=== PATIENT | male | born 1990 | race Caucasian/White ===

== ENCOUNTER 2018-02-10 14:47 | Emergency (ER) | payer SELFPAY ==
[2018-02-10] MEDS ORDERED: NORMAL SALINE 1000 ML 1,000 ML IV ONE ×2 (16:30→16:36)
[2018-02-10] MEDS ORDERED: ONDANSETRON HCL INJ/PF 4 MG/2 ML SDV IV ONE (16:30)
--- NOTE | 2018-02-10 16:38 | ER Document Report ---
ED Medical Screen (RME) - General Chief Complaint: Nausea/Vomiting/Diarrhea Stated Complaint: VOMITING,ABDOMINAL PAIN Notes: 28-year-old male with history of peptic ulcer disease and questionable gallbladder disease comes to the emergency department for vomiting and diarrhea for the last 2-3 days. He states that he is "in the bathroom constantly "and he is gotten no sleep. He complains that he has had diarrhea at least 20 times over the course of the last 48 hours. He cannot tolerate any solid foods. He can tolerate liquids for about 30 minutes and then he immediately has to go to the bathroom. He complains of sweats and chills. Patient is currently staying in a hotel and the night prior to his symptoms he ate at the [employer], the next morning had some pretzels, then his first episode of diarrhea was at about 8 PM, approximately 24 hours after last known meal. I have greeted and performed a rapid initial assessment of this patient. A comprehensive ED assessment and evaluation of the patient, analysis of test results and completion of medical decision making process will be conducted by an additional ED providers. TRAVEL OUTSIDE OF THE [place] IN LAST 30 DAYS: No - Related Data Allergies/Adverse Reactions: No Known Allergies Allergy (Verified 02/10/18 14:48) Past Medical History - Social History Frequency of alcohol use: Occasional Renal/ Medical History: Denies: Hx Peritoneal Dialysis GI Medical History: Reports: Hx Gastroesophageal Reflux Disease Past Surgical History: Reports: Hx Oral Surgery - wisdom teeth Physical Exam - Vital signs Vitals: Temp Pulse Resp BP Pulse Ox 99.0 F 128 H 16 148/95 H 96 02/10/18 14:51 02/10/18 14:51 02/10/18 14:51 02/10/18 14:51 02/10/18 14:51 - Abdominal Inspection: Normal Distension: No distension Bowel sounds: Hyperactive Tenderness: Tender - Moderate tenderness to palpation all 4 quadrants, worse in right upper quadrant. Patient states that pain on palpation RUQ so severe that it is sending chills up his spine. No rebound tenderness. No evidence of acute abdomen. Course - Vital Signs Vital signs: Temp Pulse Resp BP Pulse Ox 99.0 F 128 H 16 148/95 H 96 02/10/18 14:51 02/10/18 14:51 02/10/18 14:51 02/10/18 14:51 02/10/18 14:51
[2018-02-10 17:10] LABS: ABSOLUTE BASOPHILS # (AUTO) 0.1 10^3/uL (0.0-0.2); ABSOLUTE EOSINOPHILS # (AUTO) 0.1 10^3/uL (0.0-0.6); ABSOLUTE LYMPHOCYTES (AUTO) 1.2 10^3/uL (0.5-4.7); ABSOLUTE MONOCYTES (AUTO) 1.4 10^3/uL (0.1-1.4); ABSOLUTE NEUT (AUTO) 6.9 10^3/uL (1.7-8.2); BASOPHILS % (AUTO) 0.6 % (0-2); EOSINOPHILS % (AUTO) 0.6 % (0-6); HEMATOCRIT 54.2 % (37.9-51.0); HEMOGLOBIN 19.2 g/dL (13.5-17.0); LYMPHOCYTES % (AUTO) 12.7 % (13-45); MEAN CORPUSCULAR HEMOGLOBIN 30.9 pg (27.0-33.4); MEAN CORPUSCULAR HGB CONC 35.4 g/dL (32.0-36.0); MEAN CORPUSCULAR VOLUME 87 fl (80-97); MONOCYTES % (AUTO) 14.6 % (3-13); PLATELET COUNT 229 10^3/uL (150-450); RED BLOOD COUNT 6.21 10^6/uL (4.35-5.55); RED CELL DISTRIBUTION WIDTH 13.3 % (11.5-14.0); SEGMENTED NEUTROPHILS % (AUTO) 71.5 % (42-78); TOTAL CELLS COUNTED % (AUTO) 100 %; WHITE BLOOD COUNT 9.7 10^3/uL (4.0-10.5)
[2018-02-10 17:39] LABS: ALANINE AMINOTRANSFERASE 39 U/L (21-72); ALKALINE PHOSPHATASE 84 U/L (38-126); ANION GAP 14 (5-19); ASPARTATE AMINO TRANSFERASE 39 U/L (17-59); BILIRUBIN,DIRECT 0.3 mg/dL (0.0-0.4); BILIRUBIN,TOTAL 0.8 mg/dL (0.2-1.3); BLOOD UREA NITROGEN 26 mg/dL (7-20); CALCIUM 10.1 mg/dL (8.4-10.2); CARBON DIOXIDE 31 mmol/L (22-30); CHLORIDE 93 mmol/L (98-107); GLUCOSE 114 mg/dL (75-110); POTASSIUM 4.3 mmol/L (3.6-5.0); SODIUM 137.7 mmol/L (137-145); TOTAL PROTEIN 8.9 g/dL (6.3-8.2)
--- NOTE | 2018-02-10 17:50 | RADIOLOGY REPORT (SQ) ---
EXAM DESCRIPTION: U/S ABDOMEN LIMITED W/O DOP COMPLETED DATE/TIME: 02/10/2018 5:35 pm REASON FOR STUDY: RUQ pain. LIMITED RUQ US COMPARISON: None. TECHNIQUE: Dynamic and static grayscale images acquired of the abdomen and recorded on PACS. Elise machuca selected color Doppler and spectral images recorded. LIMITATIONS: None. FINDINGS: PANCREAS: Poorly seen. LIVER: No masses. Echotexture normal. LIVER VASCULATURE: Normal directional flow of the main portal vein and hepatic veins. GALLBLADDER: No stones. There is a small amount of sludge. No pericholecystic fluid. ULTRASOUND-DETECTED LOUIS'S SIGN: Positive INTRAHEPATIC DUCTS AND COMMON DUCT: CBD and intrahepatic ducts normal caliber. No filling defects. INFERIOR VENA CAVA: Normal flow. AORTA: No aneurysm. RIGHT KIDNEY: Normal size 9.8 cm. Normal echogenicity. No solid or suspicious masses. No hydronephro sis. No calcifications. PERITONEAL AND RIGHT PLEURAL SPACE: No ascites or effusions. OTHER: No other significant findings. IMPRESSION: There is some gallbladder sludge. There is a positive sonographic Louis sign. No gall stones. No ductal dilatation. TECHNICAL DOCUMENTATION: JOB ID: [id number] [employer]- All Rights Reserved Reading location - IP/workstation name: [email or web address]
--- NOTE | 2018-02-10 19:33 | ER Document Report ---
ED General - General Chief Complaint: Nausea/Vomiting/Diarrhea Stated Complaint: VOMITING,ABDOMINAL PAIN Notes: Patient is a 28-year-old male who presents to the emergency department with a chief complaint of nausea, vomiting, and diarrhea. He states that he has not b een able to keep any food down in the past 2 days. His pain is mainly in his right upper quadrant and is throughout his whole abdomen. He is from [facility], and is doing some work on [employer]. He states that about last year he was seen in the emergency department for the same symptoms and was told that he had gallbladder issues. He denies any stones at that time. He states he was supposed to follow-up with a surgeon, but was not able to. TRAVEL OUTSIDE OF THE [place] IN LAST 30 DAYS: No - Related Data Allergies/Adverse Reactions: No Known Allergies Allergy (Verified 02/10/18 14:48) Past Medical History - General Information source: Patient - Social History Smoking Status: Current Every Day Smoker Frequency of alcohol use: Occasional Drug Abuse: None Lives with: Friend Family History: Reviewed & Not Pertinent Patient has suicidal ideation: No Patient has homicidal ideation: No Renal/ Medical History: Denies: Hx Peritoneal Dialysis GI Medical History: Reports: Hx Gastroesophageal Reflux Disease Past Surgical History: Reports: Hx Oral Surgery - wisdom teeth Review of Systems - Review of Systems Notes: REVIEW OF SYSTEMS: CONSTITUTIONAL : Denies recent illness. Denies recent unintentional weight loss. Denies fever, chills, or sweats. EENT: Denies eye, ear, throat, or mouth pain, discharge, or symptoms. Denies nasal or sinus congestion. CARDIOVASCULAR: Denies chest pain. RESPIRATORY: Denies shortness of breath, cough, congestion, difficulty breathing, or wheezing. GASTROINTESTINAL: See HPI GENITOURINARY: Denies difficulty urinating, burning, blood in urine, urgency or frequency. MUSCULOSKELETAL: Denies neck and back pain. Denies joint pain or swelling. SKIN: Denies rash, itchiness, or lesions HEMATOLOGIC : Denies easy bruising or bleeding. LYMPHATIC: Denies swollen, painful, enlarged glands. NEUROLOGICAL: Denies no numbness or tingling denies weakness. Denies headache. Denies altered mental status. Denies alteration in speech. PSYCHIATRIC: Denies stress, anxiety, alteration in sleep patterns, or depression. All other systems reviewed and negative. Physical Exam - Vital signs Vitals: Temp Pulse Resp BP Pulse Ox 99.0 F 128 H 16 148/95 H 96 02/10/18 14:51 02/10/18 14:51 02/10/18 14:51 02/10/18 14:51 02/10/18 14:51 - Notes Notes: PHYSICAL EXAMINATION: GENERAL: Appears well, healthy, well-nourished, no acute distress. HEAD: Normocephalic, atraumatic. EYES: PERRL, conjunctiva normal, all extraocular movements intact, sclera nonicteric ENT: Moist mucous membranes. NECK: Supple, no noticeable swelling, redness, rash. Normal range of motion. LUNGS: Equal breath sounds bilaterally and clear to auscultation. No wheezes rales or rhonchi. CARDIOVASCULAR: S1-S2, regular rate, regular rhythm. Radial pulses 2+, normal. ABDOMEN: Normoactive bowel sounds. Soft, right upper quadrant tenderness, no guarding, no rebound tenderness, and no masses palpated. EXTREMITIES: Normal strength and range of motion, no pitting or edema. No cyanosis. NEUROLOGICAL: Moves all extremities upon command. Strength 5/5 in all extremities. PSYCH: Normal mood, normal affect. SKIN: Warm, dry. No rash, lesions, ulcerations noted. Normal skin turgor. Course - Re-evaluation Re-evalutation: 02/10/18 19:37 Patient does have a positive Weir sign. He also does have sludge on his ultrasound. I have called Dr. Arguelles in regards to this case. Dr. Arguelles will evaluate the patient. 02/10/18 20:39 Dr. Arguelles has evaluated the patient and he states that the patient has a stomach ulcer. Dr. Arguelles will give him his viscous lidocaine. The patient states that he does not want to stay in the hospital and be admitted. Dr. Arguelles will also order him some Carafate. If the patient does better with the viscous lidocaine, Dr. Arguelles states the patient is stable for discharge. 02/10/18 21:53 Patient states that he feels tremendously better. Dr. Arguelles has already wrote a prescription for Carafate and famotidine. Per Dr. Arguelles's recommendations, patient will be discharged since he is feeling better after having the viscous lidocaine. Verbal discharge instructions were given to the patient. They verbalized understanding. They are stable for discharge. - Vital Signs Vital signs: Temp Pulse Resp BP Pulse Ox 97.6 F 90 16 141/88 H 97 02/10/18 22:13 02/10/18 22:13 02/10/18 22:13 02/10/18 22:13 02/10/18 22:13 - Laboratory Result Diagrams: 02/10/18 16:54 02/10/18 16:54 Laboratory results interpreted by me: 02/10/18 02/10/18 16:54 16:54 RBC 6.21 H Hgb 19.2 H Hct 54.2 H Lymphocytes % 12.7 L Monocytes % 14.6 H Chloride 93 L Carbon Dioxide 31 H BUN 26 H Glucose 114 H Total Protein 8.9 H Discharge - Discharge Clinical Impression: Abdominal pain Qualifiers: Abdominal location: generalized Qualified Code(s): R10.84 - Generalized abdominal pain Condition: Stable Disposition: HOME, SELF-CARE Additional Instructions: You were seen in the emergency department today for abdominal pain and vomiting. Dr. Arguelles, her surgeon evaluated you and you have a stomach ulcer. Please take the medications he has prescribed to you. Please stay away from greasy foods, spicy foods, or any foods that will irritate your stomach. If you develop worsening abdominal pain, develop a fever greater than 100.4 F, or have any symptoms that are worrisome to you, please return to the emergency department.
[2018-02-10] MEDS ORDERED: HYDROMORPHONE HCL INJ/PF 2 MG/ML AMPULE IV ONE (19:37)
[2018-02-10] MEDS ORDERED: LIDOCAINE 2% VISCOUS SOLN 20 ML UDCUP PO ONE (20:40)
--- NOTE | 2018-02-10 21:17 | PDOC CONSULTATION ---
Consultation Consult Date: 02/10/18 Consult reason:: Constant upper abdominal pain, nausea, vomiting History of Present Illness History of Present Illness: YEISON CLEMENTE is a 28 year old male seen at the request of the emergency room physician. The patient reports a 5-day history of gnawing, stabbing, epigastric abdominal pain. The patient has a history of peptic ulcer disease. The patient takes BC powders on a regular basis. He is prescribed Prilosec, however he only takes it intermittently (when he can afford it). He also smokes cigarettes and drinks alcohol. His pain is constant and worsening. He rates it as 10 out of 10. The pain today is similar to pain he has experienced previously. It hurts with everything that he eats or drinks, including crackers and water. The patient has reported streaks of blood in his vomitus. The patient has never been tested for H. pylori. The patient has not been able to identify specific fatty food intolerance. He denies chest pain, shortness of breath, fevers, chills, blurry vision, headache, sore throat, dysuria, melena, hematochezia. Past Medical History GI Medical History: Reports: Gastroesophageal Reflux Disease, Peptic Ulcer Disease Social History Smoking Status: Current Every Day Smoker Frequency of Alcohol Use: Social - Frequent alcohol use Drugs: None Hx Prescription Drug Abuse: No Family History Parental Family History Reviewed: Yes Children Family History Reviewed: Yes Sibling(s) Family History Reviewed.: Yes Medication/Allergy Home Medications: Omeprazole 20 mg PO DAILY 02/10/18 Allergies/Adverse Reactions: No Known Allergies Allergy (Verified 02/10/18 14:48) Review of Systems Constitutional: PRESENT: anorexia, fatigue. ABSENT: chills, fever(s), night sweats Eyes: ABSENT: visual disturbances Ears: ABSENT: hearing changes Nose, Mouth, and Throat: ABSENT: sore throat Cardiovascular: ABSENT: chest pain Respiratory: ABSENT: cough, dyspnea Gastrointestinal: PRESENT: abdominal pain, hematemesis, nausea, vomiting. ABSENT: melena Genitourinary: ABSENT: dysuria Musculoskeletal: ABSENT: back pain Integumentary: ABSENT: pruritus, rash Neurological: ABSENT: confusion, convulsions, dizziness Psychiatric: ABSENT: anxiety, depression Endocrine: ABSENT: cold intolerance, heat intolerance Hematologic/Lymphatic: ABSENT: easy bleeding, easy bruising Physical Exam Vital Signs: Temp Pulse Resp BP Pulse Ox 99.0 F 128 H 16 148/95 H 96 02/10/18 14:51 02/10/18 14:51 02/10/18 14:51 02/10/18 14:51 02/10/18 14:51 Intake & Output 02/09/18 02/10/18 02/11/18 06:59 06:59 06:59 Intake Total 1999 Balance 1999 Weight 89.8 kg General appearance: PRESENT: no acute distress Head exam: PRESENT: atraumatic, normocephalic Eye exam: PRESENT: EOMI, PERRLA. ABSENT: scleral icterus Mouth exam: ABSENT: moist, neck supple Neck exam: ABSENT: meningismus, tenderness, thyromegaly, tracheal deviation Respiratory exam: PRESENT: clear to auscultation aline, unlabored. ABSENT: chest wall tenderness, retraction, tachypnea, wheezes Cardiovascular exam: PRESENT: RRR Pulses: PRESENT: normal radial pulses Vascular exam: PRESENT: normal capillary refill. ABSENT: pallor GI/Abdominal exam: PRESENT: soft, tenderness - Mild epigastric. ABSENT: distended, Weir's sign Rectal exam: PRESENT: deferred Extremities exam: ABSENT: clubbing Musculoskeletal exam: ABSENT: deformity Neurological exam: PRESENT: alert, awake, oriented to person, oriented to place, oriented to time, oriented to situation, CN II-XII grossly intact. ABSENT: motor sensory deficit Psychiatric exam: ABSENT: agitated, anxious, depressed Focused psych exam: ABSENT: delusional Skin exam: ABSENT: cyanosis, erythema, jaundice Results Laboratory Results: 02/10/18 16:54 02/10/18 16:54 02/10/18 02/10/18 16:54 16:54 WBC 9.7 RBC 6.21 H Hgb 19.2 H Hct 54.2 H MCV 87 MCH 30.9 MCHC 35.4 RDW 13.3 Plt Count 229 Seg Neutrophils % 71.5 Lymphocytes % 12.7 L Monocytes % 14.6 H Eosinophils % 0.6 Basophils % 0.6 Absolute Neutrophils 6.9 Absolute Lymphocytes 1.2 Absolute Monocytes 1.4 Absolute Eosinophils 0.1 Absolute Basophils 0.1 Sodium 137.7 Potassium 4.3 Chloride 93 L Carbon Dioxide 31 H Anion Gap 14 BUN 26 H Creatinine 0.97 Est GFR ( Amer) > 60 Est GFR (Non-Af Amer) > 60 Glucose 114 H Calcium 10.1 Total Bilirubin 0.8 AST 39 ALT 39 Alkaline Phosphatase 84 Total Protein 8.9 H Albumin 5.0 Impressions: Abdomen Ultrasound 02/10/18 16:37 IMPRESSION: There is some gallbladder sludge. There is a positive sonographic Weir sign. No gallstones. No ductal dilatation. Assessment & Plan - Diagnosis (1) Abdominal pain, acute, epigastric Is this a current diagnosis for this admission?: Yes (2) Gastritis Qualifiers: Gastritis type: other gastritis Chronicity: acute Gastritis bleeding: presence of bleeding unspecified Qualified Code(s): K29.00 - Acute gastritis without bleeding Is this a current diagnosis for this admission?: Yes - Plan Summary Plan Summary: This is a 28-year-old male with epigastric abdominal pain. I believe the patient is experiencing gastritis. The patient has a right upper quadrant ultrasound that shows minimal amount of gallbladder sludge without signs of cholecystitis (pericholecystic fluid or gallbladder wall thickening). The patient has a long history of peptic ulcer disease, has been taking large amounts of NSAIDs, has been smoking, has been drinking alcohol, and has been vomiting small amounts of blood. The patient takes Prilosec, but only uses it intermittently (which can make symptoms worse). Patient cannot relate a specific history of fatty food intolerance. The patient received complete relief with viscous lidocaine ingestion. I have recommended the patient start Zantac 150 milligrams p.o. twice daily. I will prescribe him Carafate 1 g p.o. 4 times per day. I will test him for H. pylori (serum test). At this time, the patient does not require cholecystectomy as treatment. I have offered the patient EGD for diagnosis, however he has declined. I will provide the patient with prescriptions. Disposition per the ED physician.
[2018-02-10 22:13] VITALS: BP 141/88
== END 2018-02-10 22:14 | disposition home or self-care (01) ==
LOC: ER 14:47
DX: R11.2 Nausea with vomiting, unspecified (principal); R19.7 Diarrhea, unspecified; R10.84 Generalized abdominal pain; F17.200 Nicotine dependence, unspecified, uncomplicated; K21.9 Gastro-esophageal reflux disease without esophagitis
CPT/HCPCS: 99284; 96361; 96374; 96375; 36415; 86677; 85025; 80053; 76705; J3490; J1170; J2405; J7030